=== PATIENT | male | born 1950 | race Caucasian/White ===

== ENCOUNTER 2016-09-04 06:51 | Day surgery (SDC) | payer OTHER ==
[~2016-09-04 06:51] MED LIST: CILOSTAZOL100 MG PO; HYCET1 ML PO; METFORMIN HCL1000 MG PO; MULTIVITAMIN1 TAB PO; PRAVASTATIN SOD20 MG PO
[2016-09-04] MEDS ORDERED: HYCET1 ML PO (10:07)
--- NOTE | 2016-09-04 10:09 | Provider's Discharge Care Plan ---
Problem, Goal, Plan Problem List 1. S/P LAP LIH REPAIR (TEJAL REPAIR) Goals: Improve disease control, Therapeutic intervention Instructions: Follow up as directed, Take meds as directed, SCROTAL SUPPORT 16/02 ICE PACK 24HRS LEFT GROIN
--- NOTE | 2016-09-04 10:44 | OPERATIVE REPORT ---
DATE OF SURGERY: 09/04/2016 SURGEON: Clara Monteiro III, MD INFORMATION TECHNOLOGY PROJECT MANAGER: None. PREOPERATIVE DIAGNOSIS: 1. Recurrent left inguinal hernia POSTOPERATIVE DIAGNOSIS: 1. Recurrent left indirect incarcerated inguinal hernia PROCEDURE PERFORMED: 1. Laparoscopic repair of left recurrent direct incarcerated inguinal hernia with a 13 x 10 cm preperitoneal mesh (transabdominal preperitoneal repair TEJAL) ANESTHESIA: General endotracheal. ESTIMATED BLOOD LOSS: Minimal. FLUIDS: 550 mL lactated Ringers. PATHOLOGY SPECIMEN: None. URINE OUTPUT: 200 mL. DRAINS: Demarco catheter placed preoperatively. IMPLANTS/GRAFTS: Mesh: 13 x 10 Covidien ProGrip. INDICATIONS: The patient is a 66-year-old male with a repair of his left inguinal hernia in the 1970s. Three months ago he noticed a lump in his left groin while taking a shower. He feels that it is increased in size and becoming more symptomatic. SURGICAL FINDINGS: The patient was noted to have a portion of his sigmoid incarcerated within the left direct inguinal hernia. SURGICAL TECHNIQUE: The patient was brought to the operating room and placed in the dorsal supine position, where he was administered general endotracheal anesthesia by the anesthesiology department. After proper anesthesia had taken effect, the patient 's abdomen was prepped using Betadine and draped in a sterile fashion. An infraumbilical incision was made, carried down through skin and subcutaneous tissue. A Veress needle was inserted through this site, into the abdominal cavity and, after ascertaining its appropriate position with suction irrigation, pneumoperitoneum was obtained using CO2 insufflation to approximately 14-15 mmHg pressure. Once this pressure was reached, the Veress needle was removed and replaced with a 10 mm trocar. The trocar was removed, leaving the sleeve behind, through which a laparoscopic video camera was introduced into the abdominal cavity. Under direct visualization, a separate 10 mm trocar was placed in the left lower quadrant, a 5 mm trocar was placed in right lower quadrant. Each entered the abdominal cavity under direct visualization. The trocars were removed, leaving the sleeves behind, through which laparoscopic instrumentation was introduced into the abdominal cavity. Attempt at reduction of the sigmoid colon in the direct hernia was only partially successful, secondary to the adhesions; therefore, the peritoneum overlying the hernia was incised using electrocautery ambar. This incision was carried out medially to the lateral umbilical ligament and out laterally and inferior to the anterior superior iliac crest spine. In the process, we were able to skeletonize the cord by dissecting our inferior peritoneal flap, and in the process we were able to identify Lee ligament. We were able to reduce the direct hernia using a combination of electrocautery and blunt dissection. Once the hernia was reduced and the preperitoneal space was cleared, we were able to place a piece of mesh, cut in an ovoid fashion, measuring approximately 13 x 10 cm in size, and placed into the preperitoneal space, occluding the direct hernia and putting it in such a position so that it would not shift. The mesh was the Covidien ProGrip 13 x 10 cm size. The inferior peritoneal flap was raised to the upper portion of the peritoneal flap and sutured continuously using 3-0 Hem-o-Loc stitch. Once the mesh was reperitonealized, hemostasis was achieved. The pneumoperitoneum was relieved. All trocars were removed from the abdominal cavity. All trocar sites were approximated using 4-0 subdermal Polysorb and Steri-Strips. A sterile pressure occlusive dressing was placed over each site. The patient tolerated the procedure well, was extubated, and transferred to the recovery room in stable condition. There were no intraoperative or anesthetic complications.
== END 2016-09-04 16:10 | disposition home or self-care (01) ==
LOC: OR SRH 06:51 → OB SRH 06:58
PROVIDERS: Specialist
PROC: 0YU64JZ Supplement Left Inguinal Region with Synthetic Substitute, Percutaneous Endoscopic Approach (ICD-10-PCS; principal; 2016-09-04 09:00)
DX: K40.31 Unilateral inguinal hernia, with obstruction, without gangrene, recurrent (principal); Z72.0 Tobacco use